=== PATIENT | male | born 1990 | race Caucasian/White ===

== ENCOUNTER 2018-07-19 11:17 | Emergency (ER) | payer BC, MEDICAID ==
[~2018-07-19] VITALS: Wt 62.3 kg
[~2018-07-19 11:17] MED LIST: IBUP-1542 PO; PAIN MED
[2018-07-19] MEDS ORDERED: DIPHTH/TET/ACEL PERTUSS (ADULT) 0.5 ML VIAL IM* ONE (12:00)
[2018-07-19] MEDS ORDERED: IBUPROFEN 600 MG TAB PO ONE (12:00)
[2018-07-19] MEDS ORDERED: IBUP-1542 PO (13:39)
[2018-07-19] MEDS ORDERED: CEPH-443 PO (13:39)
[2018-07-19 13:49] VITALS: BP 111/70; PULSE 60; RESP 16
--- NOTE | 2018-07-19 16:34 | ERD ---
ER Documentation Chief Complaint Chief Complaint FOOT PAIN AFTER NAIL INJURY HPI Patient is a 20-year-old male presents the ER for concerns of foot pain. Patient states that on a nail yesterday. Patient states that sometimes had intermittent pain. Patient was wearing his work boots. Patient denies any fevers or chills. Patient denies fractures or dislocations. ROS All systems reviewed and are negative except as per history of present illness. Medications Home Meds Active Scripts Cephalexin* (Keflex*) 500 Mg Capsule, 500 MG PO TID for 7 Days, CAP Prov:HAN DURAN-C 07/19/18 Ibuprofen* (Motrin*) 600 Mg Tab, 600 MG PO Q6, #30 TAB Prov:RENEEHAN Ren PA-C 07/19/18 Ibuprofen* (Motrin*) 600 Mg Tab, 600 MG PO Q6H PRN for PAIN AND OR ELEVATED TEMP, #30 Prov:KEVIN CORTEZ NP 11/22/14 Reported Medications [Pain Med] No Conflict Check 03/01/10 Allergies Allergies: Coded Allergies: No Known Allergies (Verified Allergy, Mild, 03/01/10) PMhx/Soc Medical and Surgical Hx: pt denies Medical Hx, pt denies Surgical Hx History of Surgery: No Anesthesia Reaction: No Hx Neurological Disorder: No Hx Respiratory Disorders: No Hx Cardiac Disorders: No Hx Psychiatric Problems: No Hx Miscellaneous Medical Probl: No Hx Alcohol Use: Yes (occasionally.) Hx Substance Use: Yes (cannabis.) Hx Tobacco Use: No Smoking Status: Never smoker FmHx Family History: No diabetes Physical Exam Vitals Vital Signs Date Temp Pulse Resp B/P (MAP) Pulse Ox O2 O2 Flow FiO2 Time Delivery Rate 07/19/18 60 16 111/70 100 Room Air 13:49 (84) 07/19/18 98.1 79 18 158/71 99 11:22 (100) Physical Exam GENERAL: Well-developed, well-nourished female. Appears in no acute distress. Speaking in full sentences. HEAD: Normocephalic, atraumatic. EYES: Pupils are equally reactive bilaterally. EOMs grossly intact. No conjunctival erythema. NECK: Supple. No meningismus. Normal range of motion of the neck. LUNG: Clear to auscultation bilaterally. No rhonchi, wheezing, rales or coarse breath sounds. HEART: Regular rate and rhythm. No murmurs, rubs or gallops. EXTREMITIES: Equal pulses bilaterally. No peripheral clubbing, cyanosis or edema. No unilateral leg swelling. NEUROLOGIC: Alert and oriented. Moving all four extremities without any difficulty. Normal speech. Steady gait. SKIN: Normal color. Warm and dry. No rashes or lesions. RLE: No deformity, erythema, ecchymosis or swelling. Tiny puncture wound to medial aspect of foot. No streaking, no bleeding, no discharge. Sensation intact to light touch. Neurovascularly intact. Able to plantarflex, dorsiflex, christian foot, invert foot, raise big toe. 2+ DP pulses. Results 24 hrs Current Medications Medications Dose Sig/Piedad Start Time Status Last (Trade) Ordered Route PRN Stop Time Admin Dose Reason Admin Diphtheria/ 0.5 ml ONCE ONCE 07/19/18 DC 07/19/18 Tetanus/Acell IM* 12:00 12:07 Pertussis 07/19/18 12:01 (Adacel) Ibuprofen 600 mg ONCE ONCE 07/19/18 DC 07/19/18 (Motrin) PO 12:00 12:06 07/19/18 12:01 Procedures/MDM ED COURSE: The patient was stable throughout ED course. I kept the patient and/or family informed of laboratory and diagnostic imaging results throughout the ED course. DIAGNOSTIC IMAGING: Read by radiologist. Patient: JENNIFER WATERS : 1990 Age: 28 Sex: M MR #: [id number] DOS: 07/19/18 1158 Ordering MD: HAN DURAN PA-C Location: [facility] Room/Bed: PROCEDURE: Right foot series CLINICAL INDICATION: Trauma TECHNIQUE: AP lateral and oblique images right foot were obtained COMPARISON: None FINDINGS: No evidence of acute fractures or dislocations. The bony mineralization is normal. No focal bony blastic or lytic lesions. No foreign bodies. IMPRESSION: No evidence acute fracture dislocation or radiodense foreign bodies. RPTAT:AAJJ Physician Valente Date Time Electronically viewed and signed by Physician Valente on 07/19/2018 12:54 BM/ CC: HAN DURAN PA-C [phone] MEDICAL DECISION MAKING: This is a 20-year-old male who presents the ER for concerns of foot pain after stepping on a nail.. Vital signs were reviewed. Patient was afebrile. Xrays were negative for fracture or dislocation. At this time for the patient presentation was consistent with puncture wound. Low suspicion for retained foreign body, ankle dislocation, tibia fracture, fibula fracture, ankle fracture, tarsal bone fracture, metatarsal fracture, phalangeal fracture, stress fracture, lisfranc injury, gout, septic joint, reactive arthritis, psoriatic arthritis, DVT, compartment syndrome, plantar fasciitis, diabetic neuropathy or pes planus. At this time, unable to rule out any tendon and ligament injuries. PRESCRIPTIONS: Keflex, Ibuprofen DISCHARGE: At this time, patient is stable for discharge and outpatient management. RICE therapy and ROM exercises were advised to avoid stiffness. I have instructed the patient to follow-up with his/her primary care physician in 1-2 days. I have discussed with the patient the possibility of needing to see an food safety field specialist for further workup and imaging if the pain persists. I have instructed the patient to promptly return to the ER for any new or worsening symptoms including increased pain, swelling, redness, warmth or fever. The patient and/or family expressed understanding of and agreement with this plan. All questions were answered. Home care instructions were provided. Disclaimer: Inadvertent spelling and grammatical errors are likely due to EHR/dictation software use and do not reflect on the overall quality of patient care. Also, please note that the electronic time recorded on this note does not necessarily reflect the actual time of the patient encounter. Departure Diagnosis: Primary Impression: Foot pain Laterality: unspecified laterality Qualified Codes: M79.673 - Pain in un specified foot Condition: Fair Patient Instructions: Puncture Wound, Foot Referrals: [facility] YOU HAVE RECEIVED A MEDICAL SCREENING EXAM AND THE RESULTS INDICATE THAT YOU DO NOT HAVE A CONDITION THAT REQUIRES URGENT TREATMENT IN THE EMERGENCY DEPARTMENT. FURTHER EVALUATION AND TREATMENT OF YOUR CONDITION CAN WAIT UNTIL YOU ARE SEEN IN YOUR DOCTORS OFFICE WITHIN THE NEXT 1-2 DAYS. IT IS YOUR RESPONSIBILITY TO MAKE AN APPOINTMENT FOR FOLOW-UP CARE. IF YOU HAVE A PRIMARY DOCTOR --you should call your primary doctor and schedule an appointment IF YOU DO NOT HAVE A PRIMARY DOCTOR YOU CAN CALL OUR PHYSICIAN REFERRAL HOTLINE AT IF YOU CAN NOT AFFORD TO SEE A PHYSICIAN YOU CAN CHOSE FROM THE FOLLOWING [facility] [address] [facility] [address] [facility] [address] [facility] [address] [facility] [address] [facility]. [facility] [address] [facility]. [facility] YOU HAVE RECEIVED A MEDICAL SCREENING EXAM AND THE RESULTS INDICATE THAT YOU DO NOT HAVE A CONDITION THAT REQUIRES URGENT TREATMENT IN THE EMERGENCY DEPARTMENT. FURTHER EVALUATION AND TREATMENT OF YOUR CONDITION CAN WAIT UNTIL YOU ARE SEEN IN YOUR DOCTORS OFFICE WITHIN THE NEXT 1-2 DAYS. IT IS YOUR RESPONSIBILITY TO MAKE AN APPOINTMENT FOR FOLOW-UP CARE. IF YOU HAVE A PRIMARY DOCTOR --you should call your primary doctor and schedule and appointment IF YOU DO NOT HAVE A PRIMARY DOCTOR YOU CAN CALL OUR PHYSICIAN REFERRAL HOTLINE AT . IF YOU CAN NOT AFFORD TO SEE A PHYSICIAN YOU CAN CHOSE FROM THE FOLLOWING [facility]: [facility] [address] [place] [address] [facility] [address] [place] [address] [facility] [address] [place] [address] Additional Instructions: Call your primary care doctor TOMORROW for an appointment during the next 1-2 days.See the doctor sooner or return here if your condition worsens before your appointment time. Comments age correction patient is a 28yo male HAN DURAN PA-C July 19, 2018 16:34 JAMA MCDONALD DO July 20, 2018 11:51
== END 2018-07-19 13:51 | disposition home or self-care (01) ==
LOC: FTE 11:17
DX: S91.331A Puncture wound without foreign body, right foot, initial encounter (principal); W45.0XXA Nail entering through skin, initial encounter; Y92.9 Unspecified place or not applicable; Z23 Encounter for immunization
CPT/HCPCS: 73630; 90471; 90715; Z7502; Z7610